=== PATIENT | male | born 1980 | race Caucasian/White ===

== ENCOUNTER 2018-06-21 14:48 | Emergency (ER) | payer SELFPAY ==
[~2018-06-21] VITALS: Ht 167.6 cm; Wt 69.0 kg
[2018-06-21] MEDS ORDERED: MORPHINE SULFATE 4 MG/ML CPJ (NOT FOR IM USE) IV STA (15:44)
[2018-06-21] MEDS ORDERED: ONDANSETRON HCL 4MG/2ML INJ IV STA (15:44)
[2018-06-21 16:31] LABS: BASOPHILS % 0.2 % (0.0-2.0); EOSINOPHILS % 0.1 % (0.0-5.0); HEMATOCRIT. 43.4 % (42.0-52.0); HEMOGLOBIN. 14.8 g/dL (14.0-18.0); MEAN CORPUSCULAR HEMOGLOBIN 32.5 pg (28.0-32.0); MEAN CORPUSCULAR VOLUME 95.3 fL (80.0-94.0); MEAN PLATELET VOLUME 10.2 fl (7.4-10.4); NEUTROPHILS % 83.7 % (40.0-76.0); PLATELET 322 x1000/uL (130-400); RED BLOOD CELL COUNT 4.55 mill/uL (4.7-6.1)
[2018-06-21 16:34] LABS: CHLORIDE 101 mEq/L (98-107)
[2018-06-21 16:35] LABS: PROTHROMBIN TIME 9.8 sec (9.1-11.1)
[2018-06-21] MEDS ORDERED: METOCLOPRAMIDE HCL 10MG/2ML VIAL IV ONE (18:30)
[2018-06-21] MEDS ORDERED: MORPHINE SULFATE 4 MG/ML CPJ (NOT FOR IM USE) IV ONE (18:30)
[2018-06-21 18:58] LABS: CLARITY URINE CLEAR (CLEAR); COLOR URINE YELLOW (YELLOW); KETONES URINE NEGATIVE (NEGATIVE); LEUKOCYTE ESTERASE URINE NEGATIVE (NEGATIVE); NITRITE URINE NEGATIVE (NEGATIVE); OCCULT BLOOD URINE NEGATIVE (NEGATIVE); PH URINE >=9.0 (4.5-8.0); PROTEIN URINE 1+ (NEGATIVE); SPECIFIC GRAVITY URINE 1.028 (1.005-1.030); UROBILINOGEN URINE 0.2 E.U./dL (0.2-1.0)
[2018-06-21] MEDS ORDERED: IOHEXOL-350 100 ML BOTTLE ONE (19:47)
[2018-06-21 21:00] VITALS: BP 114/65
== END 2018-06-21 21:00 | disposition home or self-care (01) ==
LOC: ER 14:48
DX: R10.9 Unspecified abdominal pain (principal); R11.2 Nausea with vomiting, unspecified; R53.1 Weakness; F17.200 Nicotine dependence, unspecified, uncomplicated; Z87.19 Personal history of other diseases of the digestive system
CPT/HCPCS: 36415; 71275; 74174; 80053; 81003; 83690; 85025; 85610; 96374; 96375; 96376; 99285; J2270; J2405; J2765; Q9967

== ENCOUNTER 2018-07-31 20:08 | Inpatient (IN) | payer SELFPAY ==
[~2018-07-31] VITALS: Ht 162.6 cm; Wt 74.8 kg
[2018-07-31] MEDS ORDERED: SODIUM CHLORIDE 0.9% 1,000 ML IV ONE (21:36)
[2018-07-31] MEDS ORDERED: MORPHINE SULFATE 4 MG/ML CPJ (NOT FOR IM USE) IV STA (21:36)
[2018-07-31] MEDS ORDERED: MAGNESIUM/ALUMINUM HYDROXIDE/SIMETHICONE 30ML UDC PO STA (21:36)
[2018-07-31] MEDS ORDERED: METOCLOPRAMIDE HCL 10MG/2ML VIAL IV STA (21:36)
[2018-07-31 22:27] LABS: BASOPHILS % 0.2 % (0.0-2.0); EOSINOPHILS % 0.2 % (0.0-5.0); HEMATOCRIT. 44.1 % (42.0-52.0); HEMOGLOBIN. 14.9 g/dL (14.0-18.0); LYMPHOCYTES % 10.1 % (20.0-50.0); MEAN CORPUSCULAR HEMOGLOBIN 32.1 pg (28.0-32.0); MEAN CORPUSCULAR VOLUME 95.2 fL (80.0-94.0); MONOCYTES % 2.7 % (2.0-8.0); NEUTROPHILS % 86.8 % (40.0-76.0); PLATELET 326 x1000/uL (130-400); RED BLOOD CELL COUNT 4.64 mill/uL (4.7-6.1); RED CELL DISTRIBUTION WIDTH 13.6 % (11.6-14.6)
[2018-07-31 22:36] LABS: CHLORIDE 100 mEq/L (98-107); ETHANOL BLOOD < 10 mg/dL
[2018-07-31] MEDS ORDERED: IOHEXOL-300 100 ML BOTTLE ONE (23:15)
[2018-07-31] MEDS ORDERED: LORAZEPAM 2MG/ML CPJ IV ONE (23:45)
[2018-08-01] MEDS ORDERED: SODIUM CHLORIDE 0.9% 1,000 ML IV SCH (01:12)
[2018-08-01 05:23] VITALS: BP 102/67
[2018-08-01] MEDS: LEVOFLOXACIN 500MG PREMIX 100 ML IV SCH (05:41)
[2018-08-01] MEDS: ONDANSETRON HCL 4MG/2ML INJ IV PRN ×3 (05:41→23:32)
[2018-08-01] MEDS: OMEPRAZOLE 20MG CAPSULE EXTENDED RELEASE PO SCH (06:45)
[2018-08-01] MEDS: MORPHINE SULFATE 4 MG/ML CPJ (NOT FOR IM USE) IV PRN ×4 (06:48→22:28)
[2018-08-01 08:00] VITALS: BP 114/68
[2018-08-01 08:33] LABS: CHLORIDE 100 mEq/L (98-107)
[2018-08-01 08:41] LABS: BASOPHILS % 0.2 % (0.0-2.0); HEMATOCRIT. 39.9 % (42.0-52.0); HEMOGLOBIN. 13.5 g/dL (14.0-18.0); LYMPHOCYTES % 12.6 % (20.0-50.0); MEAN CORPUSCULAR HEMOGLOBIN 32.4 pg (28.0-32.0); MEAN CORPUSCULAR VOLUME 95.6 fL (80.0-94.0); MEAN PLATELET VOLUME 9.1 fl (7.4-10.4); MONOCYTES % 5.7 % (2.0-8.0); NEUTROPHILS % 81.5 % (40.0-76.0); PLATELET 318 x1000/uL (130-400); RED BLOOD CELL COUNT 4.18 mill/uL (4.7-6.1); RED CELL DISTRIBUTION WIDTH 13.5 % (11.6-14.6)
[2018-08-01 12:50] VITALS: BP 108/51
[2018-08-01 16:00] VITALS: BP 113/61
[2018-08-01] MEDS: DEXT 5%/0.45% NACL 1000ML 1,000 ML IV SCH (17:51)
[2018-08-01 20:00] VITALS: BP 103/53
[2018-08-02] VITALS: BP 102/65
[2018-08-02 04:00] VITALS: BP 104/58
[2018-08-02] MEDS: LEVOFLOXACIN 500MG PREMIX 100 ML IV SCH (05:25)
[2018-08-02] MEDS: DEXT 5%/0.45% NACL 1000ML 1,000 ML IV SCH ×2 (06:20→10:14)
[2018-08-02 06:28] LABS: BASOPHILS % 0.5 % (0.0-2.0); EOSINOPHILS % 0.9 % (0.0-5.0); HEMOGLOBIN. 13.5 g/dL (14.0-18.0); LYMPHOCYTES % 37.2 % (20.0-50.0); MEAN CORPUSCULAR HEMOGLOBIN 32.4 pg (28.0-32.0); MEAN CORPUSCULAR VOLUME 96.1 fL (80.0-94.0); MEAN PLATELET VOLUME 8.9 fl (7.4-10.4); MONOCYTES % 6.3 % (2.0-8.0); NEUTROPHILS % 55.1 % (40.0-76.0); PLATELET 298 x1000/uL (130-400); RED BLOOD CELL COUNT 4.16 mill/uL (4.7-6.1); RED CELL DISTRIBUTION WIDTH 13.4 % (11.6-14.6)
[2018-08-02 06:54] LABS: CHLORIDE 102 mEq/L (98-107)
[2018-08-02] MEDS: OMEPRAZOLE 20MG CAPSULE EXTENDED RELEASE PO SCH (07:02)
[2018-08-02 08:00] VITALS: BP 113/66
[2018-08-02] MEDS: MORPHINE SULFATE 4 MG/ML CPJ (NOT FOR IM USE) IV PRN ×3 (09:13→20:11)
[2018-08-02] MEDS: ONDANSETRON HCL 4MG/2ML INJ IV PRN ×3 (09:14→22:22)
[2018-08-02 12:10] VITALS: BP 99/58
[2018-08-02 16:00] VITALS: BP 122/76
[2018-08-02 17:02] LABS: CLARITY URINE CLEAR (CLEAR); COLOR URINE YELLOW (YELLOW); KETONES URINE NEGATIVE (NEGATIVE); LEUKOCYTE ESTERASE URINE NEGATIVE (NEGATIVE); NITRITE URINE NEGATIVE (NEGATIVE); OCCULT BLOOD URINE NEGATIVE (NEGATIVE); PH URINE 7.5 (4.5-8.0); PROTEIN URINE NEGATIVE (NEGATIVE); SPECIFIC GRAVITY URINE 1.001 (1.005-1.030); UROBILINOGEN URINE 0.2 E.U./dL (0.2-1.0)
[2018-08-02 20:00] VITALS: BP 118/78
[2018-08-03] VITALS: BP 112/71
[2018-08-03] MEDS: DEXT 5%/0.45% NACL 1000ML 1,000 ML IV SCH (00:16)
[2018-08-03] MEDS: MORPHINE SULFATE 4 MG/ML CPJ (NOT FOR IM USE) IV PRN ×3 (00:35→09:11)
[2018-08-03 04:00] VITALS: BP 128/71
[2018-08-03] MEDS: ONDANSETRON HCL 4MG/2ML INJ IV PRN (04:43)
[2018-08-03 06:22] LABS: BASOPHILS % 0.6 % (0.0-2.0); EOSINOPHILS % 0.9 % (0.0-5.0); HEMATOCRIT. 40.3 % (42.0-52.0); HEMOGLOBIN. 13.6 g/dL (14.0-18.0); MEAN CORPUSCULAR HEMOGLOBIN 32.5 pg (28.0-32.0); MEAN CORPUSCULAR VOLUME 95.9 fL (80.0-94.0); MEAN PLATELET VOLUME 8.9 fl (7.4-10.4); NEUTROPHILS % 51.5 % (40.0-76.0); PLATELET 313 x1000/uL (130-400); RED CELL DISTRIBUTION WIDTH 13.5 % (11.6-14.6)
[2018-08-03] MEDS: OMEPRAZOLE 20MG CAPSULE EXTENDED RELEASE PO SCH (06:35)
[2018-08-03 06:42] LABS: CHLORIDE 103 mEq/L (98-107)
[2018-08-03 08:00] VITALS: BP 101/64
[2018-08-03 12:00] VITALS: BP 98/52
[2018-08-03 16:00] VITALS: BP 104/66
[2018-08-03] MEDS ORDERED: BISACODYL 5MG TABLET PO PRN (16:15)
[2018-08-03] MEDS ORDERED: BISACODYL 10MG SUPP PR PRN (16:15)
[2018-08-03 17:00] VITALS: BP 104/66
== END 2018-08-03 17:15 | disposition home or self-care (01) | DRG 241 ==
LOC: ER 20:08 → 6EST 08-01 01:13 → ENRESERV 08-01 02:22
PROVIDERS: ADMIT Internal Medicine; ATTEND Internal Medicine
DX: K29.70 Gastritis, unspecified, without bleeding (principal); E87.2 Acidosis; D72.829 Elevated white blood cell count, unspecified; K21.9 Gastro-esophageal reflux disease without esophagitis; K27.9 Peptic ulcer, site unspecified, unspecified as acute or chronic, without hemorrhage or perforation; K52.9 Noninfective gastroenteritis and colitis, unspecified; K59.00 Constipation, unspecified; M54.9 Dorsalgia, unspecified
CPT/HCPCS: 36415; 71045; 74018; 74177; 80048; 83605; 83615; 93005; 99285; G0482; J1956; J2060; J2270; J2405; J2765; J3490; J7030; Q9967

== ENCOUNTER 2022-05-15 12:04 | Emergency (ER) | payer MEDICAID ==
[~2022-05-15] VITALS: Ht 172.7 cm; Wt 73.0 kg
[2022-05-15] MEDS ORDERED: ONDANSETRON HCL 4MG/2ML INJ IV STA (12:11)
[2022-05-15] MEDS ORDERED: KETOROLAC 30MG/ML VIAL IV STA (12:11)
[2022-05-15] MEDS ORDERED: SODIUM CHLORIDE 0.9% 1,000 ML IV ONE (12:15)
[2022-05-15 12:33] LABS: BASOPHILS % 0.6 % (0.0-2.0); EOSINOPHILS % 0.2 % (0.0-5.0); HEMATOCRIT. 44.4 % (42.0-52.0); HEMOGLOBIN. 14.8 g/dL (14.0-18.0); LYMPHOCYTES % 13.6 % (20.0-50.0); MEAN CORPUSCULAR HEMOGLOBIN 31.4 pg (28.0-32.0); MEAN CORPUSCULAR VOLUME 94.2 fL (80.0-94.0); MEAN PLATELET VOLUME 8.3 fl (7.4-10.4); MONOCYTES % 3.2 % (2.0-8.0); NEUTROPHILS % 82.4 % (40.0-76.0); PLATELET 383 x1000/uL (130-400); RED BLOOD CELL COUNT 4.72 mill/uL (4.7-6.1); RED CELL DISTRIBUTION WIDTH 13.7 % (11.6-14.6)
[2022-05-15 12:41] LABS: CHLORIDE 106 mEq/L (98-107)
[2022-05-15 12:45] LABS: PROTHROMBIN TIME 10.4 sec (9.6-11.0)
[2022-05-15 12:53] VITALS: BP 151/97
[2022-05-15] MEDS ORDERED: TOPUD PO (14:05)
[2022-05-15] MEDS ORDERED: MAG355OR21 MT (16:55)
[2022-05-15] MEDS ORDERED: ONDA4TAB50 MT (16:55)
[2022-05-15] MEDS ORDERED: PROT40 MT (16:55)
== END 2022-05-15 14:46 | disposition home or self-care (01) ==
LOC: ER 12:04
DX: G89.29 Other chronic pain (principal); R10.12 Left upper quadrant pain; F12.10 Cannabis abuse, uncomplicated
CPT/HCPCS: 36415; 74176; 80053; 83690; 85025; 85610; 93005; 96361; 96374; 96375; 99285; J1885; J2405; J7030

== ENCOUNTER 2022-05-15 14:55 | Emergency (ER) | payer MEDICAID ==
[~2022-05-15] VITALS: Ht 167.6 cm; Wt 66.0 kg
[2022-05-15 14:55] VITALS: BP 140/80
[~2022-05-15 14:55] MED LIST: TOPUD PO
[2022-05-15] MEDS ORDERED: ONDANSETRON 4MG ODT PO ONE (16:30)
[2022-05-15] MEDS ORDERED: VISCOUS LIDOCAINE 2% 15 ML UDC MM NR (16:45)
[2022-05-15] MEDS ORDERED: HYDROCODONE/ACETAMINOPHEN 5/325MG TABLET PO NR (16:45)
[2022-05-15] MEDS ORDERED: MAGNESIUM/ALUMINUM HYDROXIDE/SIMETHICONE 30ML UDC PO NR (16:45)
[2022-05-15] MEDS ORDERED: MAG355OR21 MT (16:55)
[2022-05-15] MEDS ORDERED: ONDA4TAB50 MT (16:55)
[2022-05-15] MEDS ORDERED: PROT40 MT (16:55)
[2022-05-15] MEDS ORDERED: PANTOPRAZOLE 40MG DR TABLET PO ONE (17:00)
== END 2022-05-15 19:33 | disposition home or self-care (01) ==
LOC: ER 14:55
DX: R10.12 Left upper quadrant pain (principal); R11.2 Nausea with vomiting, unspecified; F12.10 Cannabis abuse, uncomplicated; Z87.19 Personal history of other diseases of the digestive system
CPT/HCPCS: 87426; 93005; 99284; Q0162

== ENCOUNTER 2022-05-17 09:42 | Inpatient (IN) | payer MEDICAID ==
[~2022-05-17] VITALS: Ht 167.6 cm; Wt 74.4 kg
[~2022-05-17 09:42] MED LIST changes: +MAG355OR21 MT; +ONDA4TAB50 MT; +PROT40 MT
[2022-05-17] MEDS ORDERED: ONDANSETRON HCL 4MG/2ML INJ IV STA (09:49)
[2022-05-17] MEDS ORDERED: MORPHINE SULFATE 4 MG/ML CPJ (NOT FOR IM USE) IV STA (09:49)
[2022-05-17 10:19] LABS: BASOPHILS % 0.6 % (0.0-2.0); EOSINOPHILS % 0.3 % (0.0-5.0); HEMATOCRIT. 43.1 % (42.0-52.0); HEMOGLOBIN. 14.5 g/dL (14.0-18.0); LYMPHOCYTES % 13.4 % (20.0-50.0); MEAN CORPUSCULAR HEMOGLOBIN 31.3 pg (28.0-32.0); MEAN PLATELET VOLUME 8.6 fl (7.4-10.4); MONOCYTES % 4.7 % (2.0-8.0); PLATELET 366 x1000/uL (130-400); RED BLOOD CELL COUNT 4.63 mill/uL (4.7-6.1); RED CELL DISTRIBUTION WIDTH 13.7 % (11.6-14.6)
[2022-05-17 10:27] LABS: CHLORIDE 107 mEq/L (98-107)
[2022-05-17 13:52] VITALS: BP 121/82
[2022-05-17] MEDS ORDERED: DOCUSATE SODIUM 100MG CAPSULE PO PRN (15:30)
[2022-05-17] MEDS ORDERED: HYDRALAZINE 20MG/ML VIAL IV PRN (15:30)
[2022-05-17] MEDS ORDERED: GUAIFENESIN 200MG/10ML SUGAR FREE UDC PO PRN (15:30)
[2022-05-17] MEDS ORDERED: DIPHENHYDRAMINE 50MG/ML VIAL IV PRN (15:30)
[2022-05-17] MEDS ORDERED: DIATR MEGLU/DIATRIZOATE SOLN 30ML PO SCH (15:30)
[2022-05-17] MEDS ORDERED: CLONIDINE 0.1MG TABLET PO PRN (15:30)
[2022-05-17] MEDS ORDERED: IPRATROPIUM/ALBUTEROL 0.5-3(2.5)MG/3ML NEB HHN PRN (15:30)
[2022-05-17] MEDS ORDERED: NALOXONE HCL 0.4MG/ML VIAL IV PRN (15:45)
[2022-05-17 15:59] VITALS: BP 147/90
[2022-05-17] MEDS: ONDANSETRON HCL 4MG/2ML INJ IV PRN ×2 (16:00→21:50)
[2022-05-17] MEDS: HYDROCODONE/ACETAMINOPHEN 5/325MG TABLET PO PRN ×2 (16:00→21:04)
[2022-05-17] MEDS: ENOXAPARIN 40MG/0.4ML SYR SUBCUT SCH (16:01)
[2022-05-17] MEDS: DEXT 5%/0.45% NACL 1000ML 1,000 ML IV SCH (16:06)
[2022-05-17 17:31] LABS: CLARITY URINE CLOUDY (CLEAR); COLOR URINE YELLOW (YELLOW); KETONES URINE NEGATIVE (NEGATIVE); LEUKOCYTE ESTERASE URINE NEGATIVE (NEGATIVE); NITRITE URINE NEGATIVE (NEGATIVE); OCCULT BLOOD URINE NEGATIVE (NEGATIVE); PH URINE 8.5 (4.5-8.0); PROTEIN URINE TRACE (NEGATIVE); UROBILINOGEN URINE 0.2 E.U./dL (0.2-1.0)
[2022-05-17 17:54] LABS: *AMPHETAMINES SCREEN URINE NEGATIVE (NEGATIVE); *BARBITURATES SCREEN URINE NEGATIVE (NEGATIVE); *BENZODIAZEPINES SCREEN URINE NEGATIVE (NEGATIVE); *COCAINE SCREEN URINE NEGATIVE (NEGATIVE); CANNABINOID URINE SCREEN PRESUMTIVE POSITIVE (NEGATIVE); METHADONE URINE SCREEN NEGATIVE (NEGATIVE); OPIATES URINE SCREEN PRESUMTIVE POSITIVE (NEGATIVE); PHENCYCLIDINE URINE SCREEN NEGATIVE (NEGATIVE)
[2022-05-17 20:00] VITALS: BP 117/66
[2022-05-17] MEDS: SODIUM CHLORIDE 0.9% INJ 3ML FLUSH IVF SCH (21:03)
[2022-05-17] MEDS: MAGNESIUM/ALUMINUM HYDROXIDE/SIMETHICONE 30ML UDC PO PRN (22:07)
[2022-05-17] MEDS ORDERED: IOHEXOL-300 100 ML BOTTLE ONE (22:21)
[2022-05-18] VITALS: BP 111/55
[2022-05-18] MEDS: HYDROCODONE/ACETAMINOPHEN 5/325MG TABLET PO PRN ×3 (02:25→20:37)
[2022-05-18] MEDS: ONDANSETRON HCL 4MG/2ML INJ IV PRN ×2 (03:48→12:15)
[2022-05-18 03:52] VITALS: BP 129/85
[2022-05-18] MEDS: SODIUM CHLORIDE 0.9% INJ 3ML FLUSH IVF SCH ×3 (06:24→21:41)
[2022-05-18 08:00] VITALS: BP 126/80
[2022-05-18 08:02] LABS: BASOPHILS % 0.5 % (0.0-2.0); EOSINOPHILS % 0.2 % (0.0-5.0); HEMATOCRIT. 40.2 % (42.0-52.0); HEMOGLOBIN. 13.8 g/dL (14.0-18.0); LYMPHOCYTES % 19.4 % (20.0-50.0); MEAN CORPUSCULAR HEMOGLOBIN 32.1 pg (28.0-32.0); MEAN CORPUSCULAR VOLUME 93.6 fL (80.0-94.0); MEAN PLATELET VOLUME 8.8 fl (7.4-10.4); NEUTROPHILS % 73.9 % (40.0-76.0); PLATELET 352 x1000/uL (130-400); RED BLOOD CELL COUNT 4.29 mill/uL (4.7-6.1); RED CELL DISTRIBUTION WIDTH 13.6 % (11.6-14.6)
[2022-05-18] MEDS: MAGNESIUM/ALUMINUM HYDROXIDE/SIMETHICONE 30ML UDC PO PRN (08:10)
[2022-05-18] MEDS: DEXT 5%/0.45% NACL 1000ML 1,000 ML IV SCH ×2 (08:10→17:41)
[2022-05-18 08:25] LABS: CHLORIDE 101 mEq/L (98-107)
[2022-05-18 12:00] VITALS: BP 97/58
[2022-05-18] MEDS: DOCUSATE SODIUM 100MG CAPSULE PO SCH ×2 (15:53→20:37)
[2022-05-18] MEDS: PANTOPRAZOLE SODIUM 40 MG/VIAL IV SCH ×2 (15:53→20:37)
[2022-05-18] MEDS: METOCLOPRAMIDE HCL 10MG/2ML VIAL IV SCH (15:53)
[2022-05-18] MEDS: SUCRALFATE 1 G/10 ML UDC PO SCH ×3 (15:53→20:37)
[2022-05-18] MEDS: ENOXAPARIN 40MG/0.4ML SYR SUBCUT SCH (15:54)
[2022-05-18 16:00] VITALS: BP 90/58
[2022-05-18 17:03] LABS: CREATINE KINASE 36 IU/L (39-308); CREATINE KINASE MB FRACTION < 1.0 ng/mL (0.5-3.6)
[2022-05-18] MEDS: PIPERACILLIN/TAZOBACTAM 3.375 G in DEXTROSE 5% WATER 50 ML IV SCH ×2 (17:41→21:35)
[2022-05-18 20:00] VITALS: BP 104/61
[2022-05-18 20:13] LABS: TOTAL IRON BINDING CAPACITY 336 ug/dL (250-450)
[2022-05-18] MEDS: ACETAMINOPHEN 325MG TABLET PO PRN (20:36)
[2022-05-18 20:38] LABS: FOLIC ACID (FOLATE) SERUM 18.9 ng/mL (>5.38)
[2022-05-18] MEDS: SODIUM CHLORIDE 0.9% 1,000 ML IV SCH (21:21)
[2022-05-19] VITALS: BP 103/57
[2022-05-19] MEDS: METOCLOPRAMIDE HCL 10MG/2ML VIAL IV SCH ×4 (00:40→17:24)
[2022-05-19 04:00] VITALS: BP 106/52
[2022-05-19] MEDS: PIPERACILLIN/TAZOBACTAM 3.375 G in DEXTROSE 5% WATER 50 ML IV SCH ×3 (05:01→22:26)
[2022-05-19] MEDS: SODIUM CHLORIDE 0.9% INJ 3ML FLUSH IVF SCH ×3 (05:01→22:27)
[2022-05-19] MEDS: HYDROCODONE/ACETAMINOPHEN 5/325MG TABLET PO PRN (05:17)
[2022-05-19] MEDS: SUCRALFATE 1 G/10 ML UDC PO SCH ×4 (06:25→20:17)
[2022-05-19 07:32] LABS: BASOPHILS % 0.7 % (0.0-2.0); HEMATOCRIT. 41.5 % (42.0-52.0); HEMOGLOBIN. 14.1 g/dL (14.0-18.0); LYMPHOCYTES % 36.8 % (20.0-50.0); MEAN CORPUSCULAR HEMOGLOBIN 31.9 pg (28.0-32.0); MEAN CORPUSCULAR VOLUME 93.7 fL (80.0-94.0); MEAN PLATELET VOLUME 8.7 fl (7.4-10.4); MONOCYTES % 7.8 % (2.0-8.0); NEUTROPHILS % 53.7 % (40.0-76.0); PLATELET 356 x1000/uL (130-400); RED BLOOD CELL COUNT 4.42 mill/uL (4.7-6.1); RED CELL DISTRIBUTION WIDTH 13.4 % (11.6-14.6)
[2022-05-19 07:35] LABS: CHLORIDE 103 mEq/L (98-107)
[2022-05-19 08:00] VITALS: BP 101/58
[2022-05-19] MEDS: SODIUM CHLORIDE 0.9% 1,000 ML IV SCH ×2 (09:50→23:10)
[2022-05-19] MEDS: PANTOPRAZOLE SODIUM 40 MG/VIAL IV SCH ×2 (11:26→20:17)
[2022-05-19] MEDS: DOCUSATE SODIUM 100MG CAPSULE PO SCH ×2 (11:26→17:24)
[2022-05-19] MEDS: MORPHINE SULFATE 2 MG/ML CPJ (NOT FOR IM USE) IV PRN ×2 (11:26→20:24)
[2022-05-19 12:00] VITALS: BP 117/55
[2022-05-19] MEDS: ENOXAPARIN 40MG/0.4ML SYR SUBCUT SCH (15:03)
[2022-05-19 16:00] VITALS: BP 110/51
[2022-05-19 17:26] LABS: T4 FREE 1.07 ng/dL (0.76-1.46)
[2022-05-19 20:00] VITALS: BP 121/57
[2022-05-19] MEDS: ACETAMINOPHEN 325MG TABLET PO PRN (20:24)
[2022-05-19] MEDS: ONDANSETRON HCL 4MG/2ML INJ IV PRN (22:26)
[2022-05-20] VITALS: BP 114/63
[2022-05-20] MEDS: METOCLOPRAMIDE HCL 10MG/2ML VIAL IV SCH ×4 (01:00→18:07)
[2022-05-20 04:00] VITALS: BP 111/68
[2022-05-20] MEDS: HYDROCODONE/ACETAMINOPHEN 5/325MG TABLET PO PRN ×3 (06:13→18:04)
[2022-05-20] MEDS: SUCRALFATE 1 G/10 ML UDC PO SCH ×3 (06:13→18:06)
[2022-05-20] MEDS: PIPERACILLIN/TAZOBACTAM 3.375 G in DEXTROSE 5% WATER 50 ML IV SCH ×2 (06:14→13:42)
[2022-05-20] MEDS: SODIUM CHLORIDE 0.9% INJ 3ML FLUSH IVF SCH ×2 (06:14→18:07)
[2022-05-20 08:00] VITALS: BP 114/64
[2022-05-20 08:22] LABS: BASOPHILS % 0.9 % (0.0-2.0); EOSINOPHILS % 1.6 % (0.0-5.0); HEMATOCRIT. 42.8 % (42.0-52.0); HEMOGLOBIN. 14.4 g/dL (14.0-18.0); LYMPHOCYTES % 37.4 % (20.0-50.0); MEAN CORPUSCULAR HEMOGLOBIN 31.6 pg (28.0-32.0); MEAN CORPUSCULAR VOLUME 94.1 fL (80.0-94.0); MEAN PLATELET VOLUME 9.6 fl (7.4-10.4); MONOCYTES % 9.3 % (2.0-8.0); NEUTROPHILS % 50.8 % (40.0-76.0); PLATELET 330 x1000/uL (130-400); RED BLOOD CELL COUNT 4.54 mill/uL (4.7-6.1); RED CELL DISTRIBUTION WIDTH 13.3 % (11.6-14.6)
[2022-05-20 08:29] LABS: CHLORIDE 103 mEq/L (98-107)
[2022-05-20] MEDS: PANTOPRAZOLE SODIUM 40 MG/VIAL IV SCH (09:12)
[2022-05-20] MEDS: DOCUSATE SODIUM 100MG CAPSULE PO SCH ×2 (09:12→18:06)
[2022-05-20 12:00] VITALS: BP 125/62
[2022-05-20] MEDS: MORPHINE SULFATE 2 MG/ML CPJ (NOT FOR IM USE) IV PRN (13:41)
[2022-05-20] MEDS: SODIUM CHLORIDE 0.9% 1,000 ML IV SCH (13:42)
[2022-05-20] MEDS: ENOXAPARIN 40MG/0.4ML SYR SUBCUT SCH (18:06)
[2022-05-20 18:44] VITALS: BP 138/70
[2022-05-20 20:00] VITALS: BP 136/74
== END 2022-05-20 20:50 | disposition home or self-care (01) | DRG 48 ==
LOC: ER 09:42 → 8WST 12:15 → EDBEDREQTM 12:20 → EDBEDREQ 12:20 → EDBEDREQSVC 12:20 → ENRESERV 12:53
PROVIDERS: ADMIT Internal Medicine; ATTEND Internal Medicine
DX: G90.8 Other disorders of autonomic nervous system (principal); K52.1 Toxic gastroenteritis and colitis; K56.7 Ileus, unspecified; R55 Syncope and collapse; D64.9 Anemia, unspecified; N39.0 Urinary tract infection, site not specified; E86.0 Dehydration; K57.90 Diverticulosis of intestine, part unspecified, without perforation or abscess without bleeding; F12.90 Cannabis use, unspecified, uncomplicated; F11.90 Opioid use, unspecified, uncomplicated; F17.290 Nicotine dependence, other tobacco product, uncomplicated; Z79.899 Other long term (current) drug therapy; R00.1 Bradycardia, unspecified
CPT/HCPCS: 36415; 71045; 74018; 74177; 80048; 80053; 80061; 80305; 81003; 82550; 82553; 82607; 82728; 82746; 83036; 83540; 83550; 83880; 84439; 84443; 84484; 85025; 85044; 85379; 93005; 93306; 99285; C9113; J1650; J2270; J2405; J2543; J2765; J7030; J7060; Q9963; Q9967